=== PATIENT | female | born 1990 | race Caucasian/White ===

== ENCOUNTER 2017-12-10 08:19 | Inpatient (IN) | payer BC ==
[~2017-12-10] VITALS: Ht 160 cm; Wt 70.3 kg
[2017-12-10] VITALS (7 sets, daily range): BP systolic 97–128; BP diastolic 51–67
[~2017-12-10 08:19] MED LIST: CLARITIN,ALAVAR10 MG PO
[2017-12-10 10:35] LABS: AMPHETAMINE NEGATIVE (500 ng/mL); BARBITURATES NEGATIVE (200 ng/mL); BENZODIAZEPINES NEGATIVE (150 ng/mL); BUPRENORPHINE NEGATIVE (10 ng/mL); COCAINE NEGATIVE (150 ng/mL); METHADONE NEGATIVE (200 ng/mL); METHAMPHETAMINE NEGATIVE (500 ng/mL); OPIATES (MORPHINE) NEGATIVE (100 ng/mL); OXYCODONE NEGATIVE (100 ng/mL); PHENCYCLIDINE NEGATIVE (25 ng/mL); PROPOXYPHENE NEGATIVE (300 ng/mL); THC CANNABINOIDS NEGATIVE (50 ng/mL); TRICYCLIC ANTIDEPRESSANTS NEGATIVE (300 ng/mL)
[2017-12-10] MEDS ORDERED: PERCOCET 5/31 TABLET PO (10:35)
[2017-12-10] MEDS ORDERED: MOTRIN800 MG PO (10:35)
[2017-12-11] VITALS (7 sets, daily range): BP systolic 90–116; BP diastolic 55–69
[2017-12-11 06:32] LABS: BASOPHIL (%) 0.3 % (0-1); EOSINOPHIL (%) 0.9 % (0-5); EOSINOPHIL COUNT 0.1 K/uL (0-0.3); HEMATOCRIT 29.3 % (36.0-46.0); IMMATURE GRANULOCYTE (%) 0.6 % (0.0-0.7); LYMPHOCYTE (%) 23.5 % (15-42); LYMPHOCYTE COUNT 2.3 K/uL (1.0-2.8); MCHC 32.1 G/DL (30.0-36.0); MCV 87.2 FL (83-99); MONOCYTE (%) 7.3 % (3-12); MONOCYTE COUNT 0.7 K/uL (0-0.8); NEUTROPHIL (%) 67.4 % (45-76); NEUTROPHIL COUNT 6.6 K/uL (1.8-6.4); PLATELET COUNT 255 K/uL (156-360); RBC DIS.WIDTH-SD 43.8 % (39-53); RED BLOOD COUNT 3.36 M/uL (3.80-5.20); WHITE BLOOD COUNT 9.8 K/uL (4.1-10.2)
[2017-12-11 06:36] LABS: HEMOGLOBIN 9.4 G/DL (11.9-15.5)
[2017-12-12 03:10] VITALS: BP 104/57
[2017-12-12 07:48] VITALS: BP 111/59
== END 2017-12-12 14:20 | disposition home or self-care (01) | DRG 766 ==
LOC: 2WEST 08:19 → 2SOUTH 09:48 → 2WEST 12-12 14:20
PROVIDERS: Obstetrics & Gynecology
PROC: 10D00Z1 Extraction of Products of Conception, Low, Open Approach (ICD-10-PCS; principal; 2017-12-10)
DX: O32.1XX0 Maternal care for breech presentation, not applicable or unspecified (principal); Z3A.39 39 weeks gestation of pregnancy; Z37.0 Single live birth; Z86.19 Personal history of other infectious and parasitic diseases
CPT/HCPCS: 36415; 85025; 86850; 86900; 86901; J0690; J1200; J1885; J2274; J7120; S0020